=== PATIENT | male | born 1980 | race Caucasian/White ===

== ENCOUNTER 2019-04-25 14:39 | Emergency (ER) | payer BC ==
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
[2019-04-25 15:15] VITALS: BP 119/82; PULSE 79; TEMP 98.1; BMI 20.5
[2019-04-25 16:37] LABS: BASO % 0.5 % (0-2.0); EOS % 2.1 % (0-4.5); HEMATOCRIT 46.7 % (35.4-49); HEMOGLOBIN 15.5 GM/dL (11.7-16.9); LYMPH % 20.1 % (8-40); MCH 29.9 pg (25.7-33.7); MCHC 33.2 g/dl (32.0-35.9); MEAN CELL VOLUME 90.2 fl (80-96); MEAN PLT VOLUME 8.9 fl (7.5-11.1); MONO % 5.3 % (3.8-10.2); PLATELET COUNT 211 K/MM3 (134-434); RBC 5.18 M/mm3 (4.00-5.60); RDW 13.6 % (11.9-15.9); WHITE BLOOD COUNT 7.5 K/mm3 (4.0-10.0)
[2019-04-25 17:18] LABS: ALBUMIN 4.3 g/dl (3.4-5.0); BLOOD UREA NITROGEN 8.7 mg/dL (7-18); CALCIUM 9.4 mg/dL (8.5-10.1); POTASSIUM 3.8 mmol/L (3.5-5.1)
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
--- NOTE | 2019-04-26 15:07 | EKG ---
Test Reason : Blood Pressure : / mmHG Vent. Rate : 072 BPM Atrial Rate : 072 BPM P-R Int : 212 ms QRS Dur : 086 ms QT Int : 340 ms P-R-T Axes : 087 072 072 degrees QTc Int : 372 ms SINUS RHYTHM WITH 1ST DEGREE A-V BLOCK POSSIBLE LEFT ATRIAL ENLARGEMENT ST-T ABNORMALITY: CONSIDER REPOLAIZATION CHANGES; AGE-RELATED NORMAL VARIANT; PERICARDITIS; MYOCARDIAL INJURY NONSPECIFIC ST ABNORMALITY ABNORMAL ECG NO PREVIOUS ECGS AVAILABLE Confirmed by ALANA RAMIREZ MD ([id number]) on 04/26/2019 3:07:43 PM Referred By: Confirmed By:ALANA RAMIREZ MD
== END 2019-04-25 17:55 | disposition home or self-care (01) ==
LOC: JER 14:39
DX: R00.2 Palpitations (principal)
CPT/HCPCS: 36415; 80053; 84443; 85025; 93005; 93010; 99283-25